=== PATIENT | male | born 1990 | race Caucasian/White ===

== ENCOUNTER 2016-07-20 13:16 | Inpatient (IN) | payer BC, OTHER ==
[~2016-07-20] VITALS: Ht 182.9 cm; Wt 88.9 kg
[~2016-07-20 13:16] MED LIST: DIPH50CA37 PO; Gabapentin PO; HYDR-3895 PO; Trazodone Hcl PO; VENL37.55 PO
--- NOTE | 2016-07-20 16:00 | NUR ---
Admission Note VS: BP: 128/84, HR:83, SpO2: 99%, RR: 16, Temp: 97.9 Pain: 4/10 Generalized body aches Height: 6'0" Weight: 196 LB Allergies: YU Pt is a 26 y/o male admitted to [facility] on 07/20/16 at 1530. Pt is under the care of Dr. Allen for ETOH dependence. Pt denies suicidal and homicidal ideations at this time. Pt denies being hospitalized in the past 30 days. Pt denies Chest Pain and SOB. Pt reports using Seroquel 200mg nightly for sleep and Gabapentin 600mg TID. Upon assessment pt's skin is intact. CIWA is 6 upon admission. NKA, A/Ox4 and able to answer questions necessary for the admission process. Pt is Full Code. VS WNL, Regular Diet. Reports history of withdrawal induced seizures, last seizure being 2 years ago. Pt denies having a PCP, reports have a Psychiatrist named Dr. De Leon. Breathing is even and unlabored, SpO2 is 99% on RA. Pt ambulates with a steady gait, pt reports feeling restless, states he has drank 750ml of vodka since waking up at 6am. Pt reports difficulty sleeping and staying asleep. Pt reports having 2 bowel movements today, reports that he is having diarrhea. Pt reports Hx of treatment in Apr 2016 and May 2016 at [facility]. Pt reports living with friends. Pt refuses to get the Flu vaccine and PNA vaccine at this time. Pt reports smoking [address] Allen has been notified, and has placed client under observation. Pt has received Imodium for the diarrhea and has been advised to drink lots of fluids to replace fluids lost due to diarrhea. All needs have been met. Pt has been oriented to the room and the unit. All safety measures in place per hospital policy. Bed in lowest position, side rails up x2 and padded, call-light within reach. Will continue to monitor. Substance Abuse: ETOH: 750ml Vodka daily for 8 days. Last Use: 07/20/16 750ml starting at 6am. Ketamine: 1.5g daily for 4 days. Last Use: 07/17/16 1.5 grams
[2016-07-20] MEDS ORDERED: MAG HYDROX/AL HYDROX/SIMETH 30 ML LIQUID UDC PO PRN (16:30)
[2016-07-20] MEDS ORDERED: LORAZEPAM 2 MG/1 ML VIAL IM PRN (16:30)
[2016-07-20] MEDS ORDERED: PROMETHAZINE HCL 25 MG/1 ML VIAL IM PRN (16:30)
[2016-07-20] MEDS ORDERED: ACETAMINOPHEN 325 MG TABLET PO PRN (16:30)
[2016-07-20] MEDS ORDERED: LOPERAMIDE HCL 2 MG CAPSULE PO PRN ×2 (16:30)
[2016-07-20] MEDS ORDERED: IBUPROFEN 400 MG TABLET PO PRN (16:30)
[2016-07-20] MEDS ORDERED: DICYCLOMINE HCL 20 MG TABLET PO PRN (16:30)
[2016-07-20] MEDS ORDERED: MAGNESIUM HYDROXIDE 30 ML LIQUID UDC PO PRN (16:30)
[2016-07-20] MEDS ORDERED: diphenhydrAMINE 50 MG CAPSULE PO PRN (16:30)
[2016-07-20] MEDS ORDERED: LORAZEPAM 1 MG TABLET PO PRN (16:30)
[2016-07-20] MEDS ORDERED: THIAMINE HCL 200 MG/2 ML VIAL IM ONE (16:30)
[2016-07-20] MEDS ORDERED: MIRALAX 17 GM POWD.PACK PO PRN (16:30)
[2016-07-20] MEDS ORDERED: ONDANSETRON ODT 4 MG TAB.RAPDIS SL PRN (16:30)
[2016-07-20] MEDS ORDERED: HYDROXYZINE PAMOATE 25 MG CAPSULE PO PRN (16:30)
[2016-07-20] MEDS ORDERED: CLONIDINE HCL 0.1 MG TABLET PO PRN (16:30)
[2016-07-20] MEDS ORDERED: GABA600T2 PO (16:33)
[2016-07-20] MEDS ORDERED: QUET200T3 PO (16:33)
[2016-07-20 17:31] LABS: *AMPHETAMINE, URINE NEGATIVE (NEGATIVE); *BARBITURATE, URINE NEGATIVE (NEGATIVE); *CANNABINOID, URINE NEGATIVE (NEGATIVE); *COCCAINE, URINE NEGATIVE (NEGATIVE); *OPIATE, URINE NEGATIVE (NEGATIVE); *PHENCYCLIDINE SCREEN,URINE NEGATIVE (NEGATIVE)
[2016-07-20 17:36] LABS: BASOPHILS % (AUTO) 0.4 % (0.0-2.0); EOSINOPHILS % (AUTO) 0.2 % (0.0-7.0); HEMATOCRIT 45.7 % (40.0-50.0); HEMOGLOBIN 15.3 g/dL (14.0-18.0); LYMPHOCYTES # (AUTO) 1.8 K/uL (0.8-4.8); LYMPHOCYTES % (AUTO) 30.5 % (20.5-51.5); MEAN CORPUSCULAR HEMOGLOBIN 29.5 uug (27.0-31.0); MEAN CORPUSCULAR HGB CONC 34 g/dL (32.0-37.0); MEAN CORPUSCULAR VOLUME 88.3 fL (82.0-92.0); MONOCYTES # (AUTO) 0.4 K/uL (0.1-1.30); NEUTROPHILS # (AUTO) 3.7 K/uL (1.8-8.9); NEUTROPHILS % (AUTO) 62.9 % (38.5-71.5); PLATELET COUNT (AUTO) 228 K/uL (150-450); RED BLOOD CELL COUNT(AUTO) 5.18 MIL/uL (4.70-6.10); RED CELL DISTRIBUTION WIDTH 11.6 % (11.5-14.5); WHITE BLOOD COUNT (AUTO) 5.9 K/uL (4.0-11.2)
[2016-07-20 18:06] LABS: ALBUMIN 4.1 g/dL (3.4-5.0); BILIRUBIN,TOTAL 0.6 mg/dL (0.2-1.0); CALCIUM 8.3 mg/dL (8.5-10.1); CREATININE 0.9 mg/dL (0.6-1.3); MAGNESIUM 1.8 mg/dL (1.8-2.4); TOTAL PROTEIN, SERUM 7.9 g/dL (6.4-8.2)
[2016-07-20 18:17] LABS: THYROID STIMULATING HORMONE 1.077 mIU/mL (0.358-3.740)
[2016-07-20] MEDS: LORAZEPAM 1 MG TABLET PO PRN ×2 (18:27→21:34)
--- NOTE | 2016-07-20 18:27 | NUR ---
PRN ATIVAN Administered PRN Ativan 1mg for CIWA 12 per MD orders.
--- NOTE | 2016-07-20 19:15 | NUR ---
Start of Shift Patient Received. Patient is in his room, awake, alert and verbally responsive. Breathing even and non labored. No signs of pain or discomfort noted. Patient is a 26 year old male, admitted 07/20/16 for ETOH Dependence, under the care of Dr. Allen. No tapers currently ordered. Patient was placed on PRN medications for increased signs and symptoms of withdrawal. Patient verbalizes no known allergies, wishes to be full code, following a regular diet, Skin intact, on fall and seizure precautions. Patient denies any past medical history with only history of seizures noted in 2014. Per endorsement, Patient was noted with a CIWA of 12 and was given PRN Ativan 1mg per MD orders. Patient was also given Imodium for loose bowel. Upon endorsement, patient verbalized to both nurses that patient was wanting to leave against medical advice. Administrators all made aware and at bed side with patient. will continue to monitor.
--- NOTE | 2016-07-20 19:24 | NUR ---
End of Shift Endorsement given to nightshift nurse. Pt received PRN Ativan for CIWA 12. Pt is a 26 y/o male admitted [facility] on 07/20/16 at 1530. Pt is under the care of Dr. Allen for ETOH dependence. Pt denies suicidal and homicidal ideations at this time. Pt denies being hospitalized in the past 30 days. Pt denies Chest Pain and SOB. Pt reports using Seroquel 200mg nightly for sleep and Gabapentin 600mg TID. Upon assessment pt's skin is intact. CIWA is 6 upon admission. NKA, A/Ox4 and able to answer questions necessary for the admission process. Pt is Full Code. VS WNL, Regular Diet. Reports history of withdrawal induced seizures, last seizure being 2 years ago. Pt denies having a PCP, reports have a Psychiatrist named Dr. De Leon. Breathing is even and unlabored, SpO2 is 99% on RA. Pt ambulates with a steady gait, pt reports feeling restless, states he has drank 750ml of vodka since waking up at 6am. Pt reports difficulty sleeping and staying asleep. Pt reports having 2 bowel movements today, reports that he is having diarrhea. Pt reports Hx of treatment in Apr 2016 and May 2016 at [facility]. Pt reports living with friends. Pt refuses to get the Flu vaccine and PNA vaccine at this time. Pt reports smoking [address] Allen has been notified, and has placed client under observation. Pt has received Imodium for the diarrhea and has been advised to drink lots of fluids to replace fluids lost due to diarrhea. All needs have been met. Pt has been oriented to the room and the unit. All safety measures in place per hospital policy. Bed in lowest position, side rails up x2 and padded, call-light within reach. Will continue to monitor.
[2016-07-20 20:15] VITALS: BP 128/83
[2016-07-20] MEDS ORDERED: GABAPENTIN 300 MG CAPSULE PO SCH (21:00)
[2016-07-20] MEDS: GABAPENTIN 300 MG CAPSULE PO SCH (21:34)
--- NOTE | 2016-07-20 21:35 | NUR ---
PRN Medication Administration Patient verbalizing increase signs and symtpoms of withdrawal and noted with CIWA of 12. PRN Ativan 1mg and PRN Clonidine 0.1mg. Patient also requesting sleep aid. PRN Benadryl given. Will continue to monitor for effectiveness.
[2016-07-20 21:41] LABS: HIV-1 p24 ANTIGEN NON REACTIVE (NONREACTIVE); HIV-1/2 ANTIBODY NON REACTIVE (NONREACTIVE)
[2016-07-21 00:27] VITALS: BP 133/79
[2016-07-21 04:15] VITALS: BP 117/71
--- NOTE | 2016-07-21 07:05 | NUR ---
End of Shift Patient is in bed sleeping. Breathing even and non labored. No signs of pain or discomfort noted. Patient is a 26 year old male, admitted 07/20/16 for ETOH Dependence, under the care of Dr. Allen. No tapers currently ordered. Patient was placed on PRN medications for increased signs and symptoms of withdrawal. Patient verbalizes no known allergies, wishes to be full code, following a regular diet, Skin intact, on fall and seizure precautions. Patient denies any past medical history with only history of seizures noted in 2014. Patient was noted with a CIWA of 13 and was given PRN Ativan 1mg per MD orders. Patient was also given PRN Benadryl and PRN Clonidine 0.1mg and medications all noted to be effective. All needs attended to promptly. Will endorse to continue plan of care as ordered.
--- NOTE | 2016-07-21 07:06 | NUR ---
Start Of Shift Patient is a 26 year old male, admitted on 07/20/16 for ETOH Dependence. Pt is full code, regular diet on fall and seizure precautions denies any food or drug allergies. Pt has a PMH of a seizure that occurred in 2014. No tapers currently ordered. Pt is placed on PRN medications for increased signs and symptoms of withdrawal. Pt received PRN ativan for a CIWA score of 13 Pt also received PRN Clonidine and Benadryl which were effective per city letter carrier nurse. Pts last CIWA was a 8 taken at 0027. Pt slept a total of 4 hours last night. All safety measures in place per hospital policy, call light within reach, bed in lowest locked position side rails up x2, will continue to monitor and provide support.
[2016-07-21 08:00] VITALS: BP 137/90
[2016-07-21] MEDS ORDERED: FOLIC ACID 1 MG TABLET PO SCH (09:00)
[2016-07-21] MEDS ORDERED: TUBERCULIN,PURIF.PROT.DERIV. 5 TU/0.1 ML TEST ID ONE (09:00)
[2016-07-21] MEDS ORDERED: THIAMINE HCL 100 MG TABLET PO SCH (09:00)
[2016-07-21] MEDS ORDERED: MULTIVITAMINS,THERAPEUTIC TABLET PO SCH (09:00)
[2016-07-21] MEDS ORDERED: GABAPENTIN 300 MG CAPSULE PO SCH (09:00)
[2016-07-21] MEDS: GABAPENTIN 300 MG CAPSULE PO SCH (09:00)
--- NOTE | 2016-07-21 11:42 | NUR ---
AMA NOTE Pt left AMA, Pt refused to comply with treatment. Pt educated about the risks and consequences of leaving AMA, pt verbalized understanding but was adamant about leaving. Multiple staff members including doctors, patient advocates and nurses attempted to reason with pt without any success. VS WNL, skin intact pt denied any suicidal or homicidal ideations. Pt's psychiatrist and MD were notified and aware. Pt was given a list of community resources , AMA forms explained and signed. all belongings returned to Pt. Pt left facility AMA on 07/21/16 at 11:36.
[2016-07-24 04:23] LABS: HCV AB 0.1 s/co ratio (0.0-0.9); HEPATITIS B CORE AB, IgM Negative (Negative); HEPATITIS B SURFACE AG Negative (Negative)
== END 2016-07-21 11:36 | disposition left against medical advice (07) | DRG 894 ==
LOC: SRC 14:21
PROVIDERS: ADMIT Internal Medicine; ATTEND Internal Medicine
PROC: HZ2ZZZZ Detoxification Services for Substance Abuse Treatment (ICD-10-PCS; principal; 2016-07-20)
PROC: HZ31ZZZ Individual Counseling for Substance Abuse Treatment, Behavioral (ICD-10-PCS; 2016-07-21)
DX: F10.239 Alcohol dependence with withdrawal, unspecified (principal); F10.220 Alcohol dependence with intoxication, uncomplicated; Y90.9 Presence of alcohol in blood, level not specified; Z81.8 Family history of other mental and behavioral disorders; Z81.4 Family history of other substance abuse and dependence; F17.210 Nicotine dependence, cigarettes, uncomplicated; F43.10 Post-traumatic stress disorder, unspecified; X58.XXXS Exposure to other specified factors, sequela; G47.00 Insomnia, unspecified; F32.9 Major depressive disorder, single episode, unspecified; F41.1 Generalized anxiety disorder; F16.10 Hallucinogen abuse, uncomplicated; Z91.410 Personal history of adult physical and sexual abuse; F15.10 Other stimulant abuse, uncomplicated; F11.10 Opioid abuse, uncomplicated
CPT/HCPCS: 36415; 80307; 83690; 83735; 84443; 85025; 86580; 86592; 86705; 86803; 87340; 87806; G6040-TC; J3411; Q0163